=== PATIENT | female | born 1960 | race Caucasian/White ===

== ENCOUNTER 2018-03-15 22:12 | Inpatient (IN) | payer OTHER, SELFPAY ==
[2018-03-15 23:32] LABS: HEMATOCRIT 46.6 % (36.0-47.0); MEAN CORPUSCULAR HEMOGLOBIN 29.4 pg (27.0-33.0); MEAN CORPUSCULAR HGB CONC 34.3 g/dl (32.0-36.5); MEAN CORPUSCULAR VOLUME 85.7 fl (80.0-96.0); PLATELET COUNT, AUTOMATED 351 10^3/uL (150-450); RED BLOOD COUNT 5.44 10^6/uL (4.00-5.40); RED CELL DISTRIBUTION WIDTH 13.8 % (11.5-14.5); WHITE BLOOD COUNT 8.7 10^3/uL (4.0-10.0)
[2018-03-16 00:10] LABS: ALBUMIN 3.9 GM/DL (3.2-5.2); ALBUMIN/GLOBULIN RATIO 1.03 (1.00-1.93); ALKALINE PHOSPHATASE 140 U/L (45-117); ALT/SGPT 92 U/L (12-78); ANION GAP 6 MEQ/L (8-16); AST/SGOT 57 U/L (7-37); BILIRUBIN,DIRECT 0.3 MG/DL (0.0-0.2); BILIRUBIN,TOTAL 0.9 MG/DL (0.2-1.0); BLOOD UREA NITROGEN 12 MG/DL (7-18); CALCIUM LEVEL 8.7 MG/DL (8.5-10.1); CARBON DIOXIDE LEVEL 32 MEQ/L (21-32); CHLORIDE LEVEL 108 MEQ/L (98-107); CREATININE FOR GFR 0.88 MG/DL (0.55-1.30); ETHYL ALCOHOL (ETHANOL) 0.004 % (0.000-0.010); GLOMERULAR FILTRATION RATE > 60.0 (>51); GLUCOSE, FASTING 93 MG/DL (70-100); POTASSIUM SERUM 3.2 MEQ/L (3.5-5.1); SALICYLATE LEVEL 3.4 MG/DL (5.0-30.0); SODIUM LEVEL 146 MEQ/L (136-145); THYROID STIMULATING HORMONE 0.424 uIU/ML (0.358-3.740); TOTAL PROTEIN 7.7 GM/DL (6.4-8.2)
[2018-03-16 00:14] LABS: ACETAMINOPHEN LEVEL < 2.0 UG/ML (10.0-30.0)
[2018-03-16 04:50] LABS: AMPHETAMINES LEVEL URINE POSITIVE (NEGATIVE); BARBITURATES URINE POSITIVE (NEGATIVE); BENZODIAZEPINES URINE POSITIVE (NEGATIVE); CANNABINOIDS URINE NEGATIVE (NEGATIVE); COCAINE METABOLITE URINE NEGATIVE (NEGATIVE); METHADONE URINE NEGATIVE (NEGATIVE); OPIATES URINE POSITIVE (NEGATIVE); PHENCYCLIDINE URINE NEGATIVE (NEGATIVE)
[2018-03-16] MEDS: LOPERAMIDE 2 MG CAP PO (05:05)
[2018-03-16] MEDS ORDERED: MAALOX 30 ML SUSP *UDC PO (06:00)
[2018-03-16] MEDS ORDERED: MOM 30ML SUSPENSION UDC PO (06:00)
[2018-03-16] MEDS ORDERED: traZODone 50 MG TAB PO (06:00)
[2018-03-16] MEDS ORDERED: POTASSIUM CHLORIDE 10 MEQ SR TABLET As Ordered (06:09)
[2018-03-16] MEDS: POTASSIUM CHLORIDE 10 MEQ SR TABLET PO (06:12)
[2018-03-16 06:53] LABS: AST/SGOT 64 U/L (7-37)
[2018-03-16 06:53] LABS: ALT/SGPT 100 U/L (12-78); CPK CREATINE PHOSPHOKINASE 152 U/L (26-192)
[2018-03-16] MEDS: PREGABALIN 75 MG CAP(LYRICA) PO ×2 (12:26→21:36)
[2018-03-16] MEDS: LACTOBACILLUS ACIDOPHILUS CAP (BACID) PO ×2 (12:26→21:36)
[2018-03-16] MEDS: oxyCODONE 5MG TAB PO (21:38)
[2018-03-17 07:05] LABS: KETONE, URINE AUTO RFX 1+ mg/dL (NEGATIVE); LEUKOCYTE ESTERASE UR AUTO RFX NEGATIVE (NEGATIVE); MUCUS, URINE RFX SMALL (NEGATIVE); NITRITE, URINE AUTO RFX NEGATIVE (NEGATIVE); RBC, URINE AUTO RFX 1 /HPF (0-3); SPECIFIC GRAVITY UR AUTO RFX 1.028 (1.002-1.035); SQUAM EPITHELIAL CELL UR AURFX 2 /HPF (0-6); WBC, URINE AUTO RFX 5 /HPF (0-3)
[2018-03-17 08:43] LABS: HEMATOCRIT 46.3 % (36.0-47.0); HEMOGLOBIN 15.7 g/dl (12.0-15.5); MEAN CORPUSCULAR HEMOGLOBIN 29.6 pg (27.0-33.0); MEAN CORPUSCULAR HGB CONC 33.9 g/dl (32.0-36.5); MEAN CORPUSCULAR VOLUME 87.4 fl (80.0-96.0); PLATELET COUNT, AUTOMATED 347 10^3/uL (150-450); WHITE BLOOD COUNT 7.6 10^3/uL (4.0-10.0)
[2018-03-17 09:09] LABS: ALBUMIN/GLOBULIN RATIO 1.03 (1.00-1.93); ALKALINE PHOSPHATASE 144 U/L (45-117); ALT/SGPT 130 U/L (12-78); ANION GAP 8 MEQ/L (8-16); AST/SGOT 90 U/L (7-37); BILIRUBIN,TOTAL 1.1 MG/DL (0.2-1.0); BLOOD UREA NITROGEN 15 MG/DL (7-18); CALCIUM LEVEL 9.1 MG/DL (8.5-10.1); CARBON DIOXIDE LEVEL 27 MEQ/L (21-32); CHLORIDE LEVEL 109 MEQ/L (98-107); CREATININE FOR GFR 0.94 MG/DL (0.55-1.30); GLOMERULAR FILTRATION RATE > 60.0 (>51); GLUCOSE, FASTING 106 MG/DL (70-100); POTASSIUM SERUM 3.9 MEQ/L (3.5-5.1); SODIUM LEVEL 144 MEQ/L (136-145); TOTAL PROTEIN 7.9 GM/DL (6.4-8.2)
[2018-03-17] MEDS: PREGABALIN 75 MG CAP(LYRICA) PO ×2 (09:46→20:12)
[2018-03-17] MEDS: oxyCODONE 5MG TAB PO (09:47)
[2018-03-17] MEDS: LACTOBACILLUS ACIDOPHILUS CAP (BACID) PO ×2 (09:48→20:12)
[2018-03-17 11:37] LABS: HEPATITIS C VIRUS ABY INDEX 0.1 INDEX (<0.8)
[2018-03-17 11:38] LABS: HEPATITIS B CORE ANTIBODY IGM NEGATIVE (NEGATIVE)
[2018-03-17 11:39] LABS: HEPATITIS B SURFACE ANTIGEN NEGATIVE (NEGATIVE)
[2018-03-17 12:08] LABS: HEPATITIS A ANTIBODY IGM NEGATIVE (NEGATIVE)
[2018-03-17] MEDS: PALIPERIDONE 3 MG ER TAB (INVEGA) PO (13:37)
[2018-03-18] MEDS: PREGABALIN 75 MG CAP(LYRICA) PO ×2 (09:10→20:18)
[2018-03-18] MEDS: PALIPERIDONE 3 MG ER TAB (INVEGA) PO (09:11)
[2018-03-18] MEDS: LACTOBACILLUS ACIDOPHILUS CAP (BACID) PO ×2 (09:11→20:18)
[2018-03-18] MEDS: tiZANidine 4 MG TAB PO ×2 (17:52→22:00)
[2018-03-19] MEDS: oxyCODONE 5MG TAB PO ×3 (02:07→21:27)
[2018-03-19] MEDS: ACETAMINOPHEN TAB 650MG DOSE (2X325MG) PO (04:08)
[2018-03-19] MEDS: tiZANidine 4 MG TAB PO ×3 (06:22→21:26)
[2018-03-19] MEDS: PALIPERIDONE 3 MG ER TAB (INVEGA) PO (08:04)
[2018-03-19] MEDS: LACTOBACILLUS ACIDOPHILUS CAP (BACID) PO ×2 (08:06→21:26)
[2018-03-19] MEDS: PREGABALIN 75 MG CAP(LYRICA) PO ×2 (08:06→21:26)
[2018-03-19] MEDS: LORazepam 1 MG TAB PO (21:27)
[2018-03-20] MEDS: ACETAMINOPHEN TAB 650MG DOSE (2X325MG) PO (00:25)
[2018-03-20 00:26] LABS: BEDSIDE GLUCOSE 100 MG/DL (70-105)
[2018-03-20] MEDS: tiZANidine 4 MG TAB PO ×2 (06:09→13:50)
[2018-03-20] MEDS: PALIPERIDONE 3 MG ER TAB (INVEGA) PO (09:00)
[2018-03-20] MEDS: LACTOBACILLUS ACIDOPHILUS CAP (BACID) PO (09:21)
[2018-03-20] MEDS: PREGABALIN 75 MG CAP(LYRICA) PO (09:21)
[2018-03-20] MEDS: DULoxetine 30 MG CAP (CYMBALTA) PO (09:22)
[2018-03-20 10:22] LABS: ALBUMIN 3.6 GM/DL (3.2-5.2); ALBUMIN/GLOBULIN RATIO 0.97 (1.00-1.93); ALKALINE PHOSPHATASE 134 U/L (45-117); ALT/SGPT 122 U/L (12-78); ANION GAP 8 MEQ/L (8-16); AST/SGOT 46 U/L (7-37); BILIRUBIN,TOTAL 0.3 MG/DL (0.2-1.0); BLOOD UREA NITROGEN 13 MG/DL (7-18); CALCIUM LEVEL 8.5 MG/DL (8.5-10.1); CARBON DIOXIDE LEVEL 28 MEQ/L (21-32); CHLORIDE LEVEL 107 MEQ/L (98-107); GLOMERULAR FILTRATION RATE > 60.0 (>51); GLUCOSE, FASTING 108 MG/DL (70-100); POTASSIUM SERUM 3.4 MEQ/L (3.5-5.1); SODIUM LEVEL 143 MEQ/L (136-145); TOTAL PROTEIN 7.3 GM/DL (6.4-8.2)
== END 2018-03-20 14:10 | disposition home or self-care (01) | DRG 753 ==
LOC: M ED 22:12 → M ED INP 03-16 05:49 → M PSY 03-16 09:15
PROVIDERS: Psychiatry & Neurology Psychiatry
DX: F01-F99 Mental, behavioral and neurodevelopmental disorders (principal); M32.9 Systemic lupus erythematosus, unspecified; M34.9 Systemic sclerosis, unspecified; M54.2 Cervicalgia; I10 Essential (primary) hypertension; F17.210 Nicotine dependence, cigarettes, uncomplicated; E87.6 Hypokalemia; F60.89 Other specific personality disorders; R74.0 Nonspecific elevation of levels of transaminase and lactic acid dehydrogenase [LDH]; Z79.891 Long term (current) use of opiate analgesic; Z79.899 Other long term (current) drug therapy; Z88.5 Allergy status to narcotic agent; Z88.1 Allergy status to other antibiotic agents

== ENCOUNTER 2019-02-03 16:26 | Emergency (ER) | payer OTHER ==
[~2019-02-03] VITALS: Ht 157.5 cm; Wt 83.6 kg
[~2019-02-03 16:26] MED LIST: ADDE1TAB14 PO; DULO30CA9 PO; FURO20TA2 PO; HYDR-3363 PO; HYDR50TAB PO; KLON1TAB PO; KLON2TAB PO; LYRI150C PO; LYRI75CA PO; MUCI600T31 PO; NORC1TAB5 PO; OXYC20TA2 PO; OXYCO5TA PO; TEMA30CA PO; VIST50CA PO; ZANA4TAB PO
--- NOTE | 2019-02-03 19:07 | REP ---
Clinical: Trauma . Comparison: None . Findings: The ventricles, sulci, and cisterns are normal in position and appearance. Summers-white differentiation is maintained. No acute intracranial hemorrhage, mass/mass effect, pathology or trauma/injury. No evidence for acute infarction. No extra-axial fluid collection. Calvarium is intact. Paranasal sinuses and mastoid air cells are clear. Impression: Normal noncontrast head CT. No evidence for acute intracranial pathology or trauma/injury. Electronically Signed by Tylor Chavarria MD 02/03/2019 06:59 P
--- NOTE | 2019-02-03 19:09 | REP ---
Clinical: Trauma . Technique: Axial noncontrast images from the skull base to the thoracic inlet with coronal and sagittal re-formations Findings: Evidence of prior anterior fixation at C5-6 along with moderate degenerative disc osteophyte complex at C3-4, C4-5, and C6-7. Normal alignment is maintained. There is no evidence for acute fracture / compression injury or subluxation. Spinal canal is patent. Posterior elements are intact. Paravertebral soft tissues are normal. Impression: 1. Mild/moderate multilevel degenerative changes and evidence for prior anterior fixation. 2. No acute fracture / compression injury or subluxation. Electronically Signed by Tylor Chavarria MD 02/03/2019 07:01 P
[2019-02-03 20:10] VITALS: BP 138/80
== END 2019-02-03 20:11 | disposition home or self-care (01) ==
LOC: M ED 16:26
DX: S09.90XA Unspecified injury of head, initial encounter (principal); W01.198A Fall on same level from slipping, tripping and stumbling with subsequent striking against other object, initial encounter; Y92.410 Unspecified street and highway as the place of occurrence of the external cause; M54.2 Cervicalgia; H53.8 Other visual disturbances; H53.2 Diplopia; G43.909 Migraine, unspecified, not intractable, without status migrainosus; G47.33 Obstructive sleep apnea (adult) (pediatric); J45.909 Unspecified asthma, uncomplicated; K21.9 Gastro-esophageal reflux disease without esophagitis; L94.8 Other specified localized connective tissue disorders; Z98.1 Arthrodesis status; Z88.2 Allergy status to sulfonamides; Z88.5 Allergy status to narcotic agent; Z88.1 Allergy status to other antibiotic agents

== ENCOUNTER → 2019-02-11 | Outpatient (CLI) | payer OTHER ==
--- NOTE | 2019-02-11 17:59 | REP ---
Right knee five views History: Contusion There is no acute fracture or dislocation. There is moderate narrowing of the medial knee joint space. The lateral knee joint space and patellofemoral joint space are normal in appearance. Osteophytes are present on this femur and tibia. Impression: Degenerative change as described above. Electronically Signed by Doc Villar MD 02/11/2019 05:50 P
== END ==
LOC: M WUC 17:19
PROVIDERS: ATTEND Physician Assistant
DX: S80.01XA Contusion of right knee, initial encounter (principal); W18.30XA Fall on same level, unspecified, initial encounter; Y92.009 Unspecified place in unspecified non-institutional (private) residence as the place of occurrence of the external cause

== ENCOUNTER → 2020-06-01 | Outpatient (CLI) | payer OTHER ==
[~2020-06-01] MED LIST changes: +ASPI325T56 PO; +CLON1TAB8 PO; +CLON2TAB14 PO; +CYMB60CA3 PO; +HYDR50TA70 PO; +MELA10CA2 PO; +MELO15TA28 PO; +MUCI1TAB16 PO; +MYRB25TA PO; +PERC5TAB12 PO; +PREG50CA PO; +TRAZ-189 PO; +XARE10TA PO
[2020-06-01 14:20] LABS: INR 0.87
--- NOTE | 2020-06-07 09:30 | REP ---
CHEST X-RAY: 2-VIEWS HISTORY: Right knee osteoarthritis. FINDINGS: The patient is status post cervical spine discectomy and fusion plating. There are degenerative changes in the thoracic spine. The lungs are well-inflated and clear. The pleural angles are sharp. Heart size is normal. Pulmonary vasculature is not increased. The thoracic aorta is slightly tortuous. IMPRESSION: No active disease. MTDD
== END ==
LOC: M LAB 13:22
PROVIDERS: ATTEND Orthopaedic Surgery
DX: Z01.818 Encounter for other preprocedural examination (principal); M25.561 Pain in right knee; J44.9 Chronic obstructive pulmonary disease, unspecified; G62.9 Polyneuropathy, unspecified

== ENCOUNTER → 2020-06-01 | Outpatient (CLI) | payer OTHER | LOC: M LABSMTC 10:04 | PROVIDERS: ATTEND Anesthesiology | DX: Z01.812 Encounter for preprocedural laboratory examination (principal); Z20.828 Contact with and (suspected) exposure to other viral communicable diseases ==

== ENCOUNTER 2020-06-06 08:46 | Inpatient (IN) | payer OTHER ==
--- NOTE | 2020-06-05 14:33 | HPE ---
DATE OF ADMISSION: 06/06/2020 ATTENDING PHYSICIAN: Dr. Osorio Bonner CHIEF COMPLAINT: Right knee pain. HISTORY OF PRESENT ILLNESS: Lucy is a pleasant 59-year-old female with progressively worsening right knee pain and stiffness. She has failed to improve with conservative treatment. She has elected for surgery for her continued symptoms. She has pain with weightbearing activities and her activities of daily living. X-rays of her knee are notable for advanced osteoarthritis of the right knee. She has consented for a right total knee arthroplasty by Dr. Ryan Campos. ALLERGIES: DEMEROL, NEURONTIN, CLINDAMYCIN, and SULFA DRUGS, as well as patch delivery systems. CURRENT MEDICATIONS: - Lyrica 150 four times a day - tizanidine 4 mg three times a day - Klonopin 2 mg at bedtime - hydroxyzine - Cymbalta 120 mg at bedtime - hydrochlorothiazide 50 mg in the morning PAST MEDICAL HISTORY: 1. Chronic obstructive pulmonary disease (COPD). 2. Anxiety. 3. Mixed connective tissue disease. 4. High blood pressure. PAST SURGICAL HISTORY: 1. Superior labral tear from anterior to posterior (SLAP) repair of both shoulders. 2. C4-5 fusion. 3. Right knee meniscal repair. SOCIAL HISTORY: She is disabled. She smokes a half a pack a day and does not drink alcohol. FAMILY HISTORY: Noncontributory. REVIEW OF SYSTEMS: This patient denies chest pain, heart palpitations, cough, wheezing, difficulty breathing, and shortness of breath. She denies abdominal pain, nausea, vomiting, diarrhea, or constipation. She denies recent upper respiratory infection or urinary tract infection symptoms. She does complain of pain with weightbearing activities in her right knee. PHYSICAL EXAMINATION: GENERAL: She is a well-nourished, well-developed in no acute distress alert female. She ambulates with a mild limp favoring the right lower extremity. She is not using assistive devices. VITAL SIGNS: She is 5 feet 1-1/2 inches tall, weighs 200.8 pounds with a temperature of 97.1, blood pressure 132/60, pulse 68, respirations 12, NECK: Supple without adenopathy of jugular venous distention. There were no carotid bruits appreciated upon auscultation LUNGS: Clear to auscultation without rales or wheeze. HEART: Regular rate and rhythm. ABDOMEN: Bowel sounds were present. EXTREMITIES: Examination of the knee revealed intact skin. She had decreased range of motion due to pain and stiffness. The limb is neurovascular intact. LABORATORY DATA: CBC was within normal limits. Glucose 11, BUN 10, creatinine 1.0. Sodium 142, potassium 4.1. Protime 12.0, INR 0.87. Sedimentation rate was 7. Lucy has completed her chest x-ray and EKG, though the results are not available at this time. IMPRESSION: Symptomatic osteoarthritis of the right knee joint. PLAN: Consented for a right total knee arthroplasty by Dr. Ryan Campos pending chest x-ray and EKG. Edited: 06/12/20 1424 miles [place]
[~2020-06-06] VITALS: Ht 154.9 cm; Wt 93.8 kg
[~2020-06-06 08:46] MED LIST changes: +CelecoXIB 400 MG CAP PO ONE; +LR 1,000 ML IV ONE; -PERC5TAB12 PO; +PERCOCET 5MG/325MG TAB PO ONE; +PREGABALIN 75 MG CAP(LYRICA) PO ONE; -XARE10TA PO; +ceFAZolin SOD 2 GM in IV 1 EA IV ONE; +fentaNYL 100 MCG/2 ML INJECTION (J3010) IV SCH
[2020-06-06] MEDS ORDERED: propofoL 500 MG/50 ML VIAL As Ordered ONE (09:00)
[2020-06-06] MEDS ORDERED: ACETAMINOPHEN 1000MG 100ML IV BTL (OFIRMEV) (J0131 PER 10MG) As Ordered ONE (09:00)
[2020-06-06] MEDS ORDERED: LIDOCAINE 2% 100MG/5ML SDV (FOR ANES.) As Ordered ONE (09:00)
[2020-06-06] MEDS ORDERED: dexameTHASONE 4 MG/ML 1ML VIAL (J1100 PER 1MG) As Ordered ONE (09:00)
[2020-06-06] MEDS ORDERED: ONDANSETRON 4MG/2ML VIAL As Ordered ONE (09:00)
[2020-06-06] MEDS ORDERED: KETOROLAC 60MG 2ML VIAL As Ordered ONE (09:00)
[2020-06-06] MEDS ORDERED: propofoL 200 MG/20 ML VIAL As Ordered ONE (09:01)
[2020-06-06] MEDS ORDERED: fentaNYL 100 MCG/2 ML INJECTION (J3010) As Ordered ONE ×3 (09:01→13:28)
[2020-06-06] MEDS ORDERED: MIDAZOLAM INJ 2MG/2ML VIAL (J2250 PER 1MG) As Ordered ONE ×2 (09:01→11:16)
[2020-06-06] MEDS: MIDAZOLAM INJ 2MG/2ML VIAL (J2250 PER 1MG) IV SCH ×2 (11:41→11:44)
[2020-06-06] MEDS ORDERED: ROCURONIUM BROMIDE 50 MG/5 ML VIAL As Ordered ONE (12:29)
[2020-06-06] MEDS ORDERED: BUPIVACAINE/EPIN 0.25% 30 ML VIAL As Ordered ONE (12:29)
[2020-06-06] MEDS ORDERED: ceFAZolin 1GM VIAL (J0690 PER 500MG) As Ordered ONE (12:30)
[2020-06-06] MEDS ORDERED: EPINEPHrine INJ 1 MG/ML 1ML AMP As Ordered ONE (12:30)
[2020-06-06] MEDS ORDERED: BUPIVACAINE HCL 0.5% 10ML VIAL As Ordered ONE (12:30)
[2020-06-06] MEDS ORDERED: TRANEXAMIC ACID 100 MG/ML 10ML VIAL As Ordered ONE (12:30)
[2020-06-06] MEDS ORDERED: BUPIVACAINE LIPOSOME/PF 1.3% 20ML VIAL (13.3MG/ML)(EXPAREL)(C9290 PER1MG) As Ordered ONE (12:30)
[2020-06-06] MEDS ORDERED: dexameTHASONE 10MG/1ML VIAL PRES.FREE (J1100 PER 1MG) ONE (13:49)
[2020-06-06] MEDS ORDERED: EPINEPHrine INJ 1 MG/ML 1ML AMP ONE (13:49)
[2020-06-06] MEDS ORDERED: ROPIvacaine 0.5% 30ML INJECTION (J2795 PER 1MG) ONE (13:49)
[2020-06-06] MEDS ORDERED: ONDANSETRON 4MG/2ML VIAL IV PRN ×2 (15:30→15:45)
[2020-06-06] MEDS ORDERED: METOCLOPRAMIDE INJ 10MG/2ML VIAL (J2765 PER 1) IV PRN (15:30)
[2020-06-06] MEDS ORDERED: fentaNYL 100 MCG/2 ML INJECTION (J3010) IV PRN (15:30)
[2020-06-06] MEDS ORDERED: LR 1,000 ML IV SCH (15:30)
[2020-06-06] MEDS ORDERED: ACETAMINOPHEN TAB 650MG DOSE (2X325MG) PO PRN (15:45)
[2020-06-06] MEDS ORDERED: PROMETHAZINE INJ 25 MG/ML VIAL (J2550) IV PRN (15:45)
[2020-06-06] MEDS ORDERED: PERCOCET 5MG/325MG TAB PO PRN (15:45)
[2020-06-06] MEDS ORDERED: D5W/0.45% SODIUM CHLORIDE 1,000 ML IV SCH (15:45)
[2020-06-06] MEDS ORDERED: HYDROMORPHONE HCL 0.5 MG/ 0.5 ML SYRINGE (J1170 PER 1) IV PRN ×2 (15:45)
[2020-06-06] MEDS ORDERED: traMADol 50 MG TAB PO PRN (15:45)
[2020-06-06] MEDS: oxyCODONE 5MG TAB PO PRN ×2 (15:46→16:16)
[2020-06-06] MEDS ORDERED: ALBUTEROL SULFATE 2.5 MG/0.5 ML INH NEB SOLN INH PRN (16:15)
[2020-06-06 18:20] VITALS: BP 98/82
[2020-06-06] MEDS: PERCOCET 5MG/325MG TAB PO PRN (18:52)
[2020-06-06] MEDS: ALBUTEROL SULFATE 2.5 MG/0.5 ML INH NEB SOLN INH SCH (20:00)
[2020-06-06] MEDS: ceFAZolin SOD 2 GM in IV 1 EA IV SCH (20:42)
[2020-06-06 21:00] VITALS: O2SAT 96
[2020-06-06] MEDS ORDERED: ceFAZolin SOD 1 GM in D5W MINI-BAG PLUS 50 ML IV SCH (21:00)
[2020-06-06 22:00] VITALS: BP 110/59
[2020-06-06] MEDS ORDERED: RAMELTEON 8 MG TAB (ROZEREM) PO PRN (23:00)
[2020-06-06] MEDS ORDERED: hydrOXYzine 50 MG TAB PO SCH (23:00)
[2020-06-06] MEDS ORDERED: clonazePAM 1 MG TAB PO SCH (23:00)
[2020-06-06] MEDS ORDERED: traZODone 100 MG TAB PO SCH (23:00)
[2020-06-07] MEDS: PERCOCET 5MG/325MG TAB PO PRN (01:07)
[2020-06-07 02:00] VITALS: BP 95/53
[2020-06-07] MEDS: ceFAZolin SOD 2 GM in IV 1 EA IV SCH (05:03)
[2020-06-07 05:56] LABS: HEMATOCRIT 31.7 % (36.0-47.0); HEMOGLOBIN 10.5 g/dl (12.0-15.5); MEAN CORPUSCULAR HEMOGLOBIN 29.4 pg (27.0-33.0); MEAN CORPUSCULAR HGB CONC 33.1 g/dl (32.0-36.5); MEAN CORPUSCULAR VOLUME 88.8 fl (80.0-96.0); PLATELET COUNT, AUTOMATED 304 10^3/uL (150-450); RED BLOOD COUNT 3.57 10^6/uL (4.00-5.40); WHITE BLOOD COUNT 15.4 10^3/uL (4.0-10.0)
[2020-06-07 06:00] VITALS: BP 96/67
[2020-06-07 06:19] LABS: BLOOD UREA NITROGEN 11 MG/DL (7-18); CARBON DIOXIDE LEVEL 24 MEQ/L (21-32); CHLORIDE LEVEL 106 MEQ/L (98-107); GLOMERULAR FILTRATION RATE > 60.0 (>51); GLUCOSE, FASTING 172 MG/DL (70-100); POTASSIUM SERUM 4.2 MEQ/L (3.5-5.1); SODIUM LEVEL 136 MEQ/L (136-145)
[2020-06-07] MEDS ORDERED: XARE10TA PO (06:54)
[2020-06-07] MEDS ORDERED: PERC5TAB12 PO (06:54)
[2020-06-07] MEDS ORDERED: PERCOCET 5MG/325MG TAB PO PRN ×2 (07:00)
[2020-06-07] MEDS: ALBUTEROL SULFATE 2.5 MG/0.5 ML INH NEB SOLN INH SCH ×2 (08:00→11:58)
[2020-06-07] MEDS ORDERED: MOM 30ML SUSPENSION UDC PO SCH (09:00)
[2020-06-07] MEDS ORDERED: DULoxetine 30 MG CAP (CYMBALTA) PO SCH (09:00)
[2020-06-07] MEDS ORDERED: tiZANidine 4 MG TAB PO SCH (09:00)
[2020-06-07] MEDS ORDERED: MIRALAX *UNIT DOSE* 17GM PACKET PO SCH (09:00)
[2020-06-07] MEDS ORDERED: CelecoXIB 400 MG CAP PO ONE (09:00)
[2020-06-07 10:00] VITALS: BP 101/67
--- NOTE | 2020-06-07 14:09 | CR ---
DATE OF CONSULTATION: 06/06/2020 REFERRING PHYSICIAN: Osorio Bonner M.D. REASON FOR CONSULTATION: The Hospitalist generated medical evaluation for Lucy Urbina, seen in the PACU area after undergoing right total knee. PRIMARY CARE PROVIDER: Dr. Rosales office. I reviewed her preop evaluation as part of the assessment. HISTORY OF PRESENT ILLNESS: She has a medical history significant for hypertension, obstructive sleep apnea, intermittent asthma, mixed connective tissue disease, peripheral neuropathy, and migraine headaches. [facility] after a suicide attempt in 03/24. She has a history of DAMIEN, she had a CPAP machine where she lived previously in [place] but apparently forgot to bring it with her when she moved. On the preop evaluation from 05/24 indicated she was trying to have it shipped here from [place]. No history of coronary disease, DVT or pulmonary embolism. No history of cerebrovascular disease. Denies any recent chest pain, shortness of breath or palpitations. CURRENT MEDICATIONS: 1. Klonopin 1 mg b.i.d. p.r.n. with 2 mg at bedtime. 2. Aspirin 325 mg daily. 3. Cymbalta 60 mg tablet, two of them (120 mg) daily. 4. Hydrochlorothiazide 50 mg daily. 5. Hydroxyzine 50 mg q.h.s. 6. Melatonin at bedtime. 7. Myrbetriq 25 mg daily. 8. Lyrica 50 mg capsule, three capsules (150 mg) q.i.d. 9. Tizanidine 4 mg q. 8 hours p.r.n. 10. Trazodone 200 mg p.o. q.h.s. ALLERGIES: Sulfa, Clindamycin, codeine, Gabapentin, Demerol, Morphine. PHYSICAL EXAMINATION: VITAL SIGNS: Blood pressure 102/58, respiratory rate 20, O2 saturation in the mid 80s, when I evaluated her it was up to 97% postop but she is still sedated and periodically desaturates. HEENT: Unremarkable. LUNGS: Clear. HEART: Heart without murmur. ABDOMEN: Soft, nontender, no masses. EXTREMITIES: No peripheral edema. Moves arms and legs with equal strength. IMPRESSION: 1. Hypertension, hold off on her Hydrochlorothiazide for now until her blood pressure declares itself postoperatively. Would recommend restarting this at a lower dose than the 50 mg a day that she is taking currently. 2. History of depression. Continue her Duloxetine 120 mg daily. 3. History of anxiety, she takes Klonopin 1 mg b.i.d. and then 2 mg at bedtime and I would recommend holding these for now until she is safely postoperative, she keeps dropping her O2 saturations in the Recovery Room and I would avoid sedative medications at this point. 4. Asthma, nebulized bronchodilator p.r.n. 5. DAMIEN. She should use her CPAP from home, if she does not have one the hospital can supply one. Postop sleep apnea protocol advised. 6. Thromboembolic prophylaxis is per Orthopedics. MTDD
[2020-06-07] MEDS ORDERED: RIVAROXABAN 10 MG TAB (XARELTO) PO SCH (18:00)
--- NOTE | 2020-06-12 11:29 | DS ---
DATE OF ADMISSION: 06/06/2020 DATE OF DISCHARGE: 06/07/2020 ATTENDING PHYSICIAN: Osorio Bonner MD ADMITTING DIAGNOSIS: Right knee osteoarthritis. OTHER DIAGNOSES: Obstructive pulmonary disease, anxiety, mixed connective tissue disease, hypertension. DISCHARGE DIAGNOSIS: Right knee osteoarthritis status post right total knee arthroplasty. HISTORY: Patient is a 59-year-old female with progressively worsening right knee pain and stiffness. She failed to improve with conservative measures. She continued to have symptoms with weightbearing activities and activities of daily living. She consented for an elective right total knee arthroplasty with Dr. Bonner for her continued symptoms. OPERATION PERFORMED: Right total knee arthroplasty. HOSPITAL COURSE: The patient underwent a right total knee arthroplasty under general anesthesia which was uneventful. Her hospital course was without complication and she was up with physical therapy per their protocol weightbearing as tolerated on the right lower extremity. Patient was discharged on oral pain medications and will resume her preoperative medications and diet. She will use her thromboembolic deterrent stockings and take her anticoagulant postoperatively to prevent deep venous thrombosis. She will followup in our office in 12-14 days for a wound check and reevaluation. She is encouraged to contact us sooner if there is any increase in pain, redness, drainage, numbness or tingling in the extremity, fever greater than 101 degrees, or any other concerns. Please see medical record for additional details. ERAN
--- NOTE | 2020-06-12 11:53 | REP ---
RIGHT KNEE TWO VIEWS PORTABLE HISTORY: Right knee replacement. TECHNIQUE: Two views of the right knee are performed. FINDINGS: Prosthetic components are noted at the distal end of the femur and proximal end of the tibia. The osseous structures are intact and well aligned. Small amount of air and fluid are seen in the suprapatellar bursa. MTDD
--- NOTE | 2020-06-13 08:29 | RO ---
DATE OF OPERATION: 06/06/2020 PREOPERATIVE DIAGNOSIS: Right knee osteoarthritis. POSTOPERATIVE DIAGNOSIS: Right knee osteoarthritis. PROCEDURE: Right total knee replacement. SURGEON: Osorio Bonner M.D. MECHANICAL SHOP LABORER: Marvin Marx PA-C ANESTHESIA: General endotracheal ESTIMATED BLOOD LOSS: Less than 100 mL. COMPLICATIONS: No complications. TOURNIQUET: No tourniquet was inflated. COMPONENTS USED: Included DePuy Attune system, rotating platform, posterior stabilized knee system, size 6 narrow, 6 mm polyethylene, size 6 tibial tray, 35 mm patellar button. Consent reviewed in detail including a jonna discussion of the pathology involved, procedure proposed, alternatives including doing nothing, risks including but not limited to pain, failure, infection, bleeding, blood loss, incomplete relief of symptoms, need for additional surgery and other issues. The patient agrees to proceed with surgery. OPERATIVE COURSE: The patient was identified in the holding area. Site and side verified. Block was administered. The patient declined spinal anesthesia, brought to the operating room. General endotracheal anesthesia was administered. She was positioned for exposure of the right knee for arthroplasty. Once all the anesthetists were comfortable with the patients positioning, she was sterilely prepped and draped in the usual fashion. Next, I outlined the incision with a marking pen, infiltrated with 1/4% Marcaine with epinephrine and injected the remaining 6 mL of 1/4% Marcaine with epinephrine intra-articularly. Next, the incision was made with a 10 blade knife. We did not inflate the tourniquet for this case. We developed down through subcuticular tissues to the extensor mechanism. Hemostasis was accomplished with Bovie cautery. Next, a medial parapatellar standard arthrotomy was accomplished. The patella was everted. The infrapatellar fat pad was sacrificed. The medial release was accomplished. The knee was placed in a flexed position. The femoral canal was entered with canal opening drill. The distal femoral guide was installed for her because of short stature which was 6 degrees. The guide was pinned into place. I placed retractors while Mr. Marx utilized the oscillating saw to make the distal femoral cut. Next, once this was accomplished with the knee in a flexed position, we placed the AP sizing guide, predicting the size 6 femoral component. Next, pins were drilled, 4-in-1 guide installed. The anterior and posterior cuts were made by myself with an oscillating saw as well as then the chamfer cuts and then I recut the anterior cut. Next, the guide was removed. Cuts were verified. Next, the box cut was made. Size 6 guide was applied, pinned into place. Notch cut was made with the oscillating saw and then we used the rasp. This guide was also removed. Next, attention was turned to the tibial side. Extramedullary tibial alignment jig was applied, pinned into place 4 mm off the medial compartment. Next, I placed the Hohmann retractors and Mr. Marx secured the Hohmann retractors. We removed the proximal tibia using the oscillating saw. Next, additional cruciate ligament was removed using the Bovie cautery. Lamina spreaders were utilized and I removed meniscus as well as posterior osteophytes, especially posterior osteophytes in the medial compartment. Next, once this was accomplished, sizing blocks were applied, predicting the size 6 to be appropriate in flexion as well as extension. Next, once this was accomplished, the tibia was subluxed anteriorly. A trial tibial tray was pinned into place. Broach tower secured into place. The broach drill was utilized to open the tibial canal. The broach was then utilized and left in place, the tower removed. A trial tibia tray and polyethylene was installed after we installed the trial femoral component. The trial femoral component fit appropriately and the condyles were drilled. Next, the knee was placed through a range of motion with acceptable alignment including full extension. It was stable with stress. Next, the patella everted. I cleared soft tissue from around the patella. An oscillating saw was utilized to make the posterior patellar cut. The trial patellar button was secured into place, drilled and we placed the trial patella. The knee was placed through a range of motion with good tracking. Next, trial components were then removed. I placed retractors. We utilized pulse lavage irrigation. I also irrigated with TXA solution. Next, Mr. Marx stepped to the back table and prepared the bone cement while I pulse lavaged the knee. Next, once the knee surfaces were dry, I cemented the tibial component into place, excess cement cleared. I then cemented the femoral component into place, cleared excess cement. I then installed the nontrial polyethylene, placed the knee in extension, everted the patella and cemented the patellar button. While the cement was hardening, Francisco J and I applied Exparel for a perioperative analgesia and implemented pulse lavage as well as allowing TXA to stay within the knee for a minute. Next, once the cement had hardened, the patella clamp was removed. We evaluated, no excess cement around the patella and around the knee. We closed the arthrotomy using interrupted and a running Stratafix stitch, the dermis using interrupted stitch. Prineo dressing was applied on the skin. The patient was moved to the recovery room in good condition. Mr. Marx participated in the entirety of this case in the capacity of electrician's assistant. For further details, please refer to medical record. ERAN
== END 2020-06-07 12:40 | disposition home health service (06) | DRG 302 ==
LOC: M OR 08:46 → M MS5PR 18:37
PROVIDERS: ADMIT Orthopaedic Surgery; ATTEND Orthopaedic Surgery
PROC: 0SRC0J9 Replacement of Right Knee Joint with Synthetic Substitute, Cemented, Open Approach (ICD-10-PCS; principal; 2020-06-06 12:15)
DX: M17.11 Unilateral primary osteoarthritis, right knee (principal); M35.8 Other specified systemic involvement of connective tissue; I10 Essential (primary) hypertension; G62.9 Polyneuropathy, unspecified; J44.9 Chronic obstructive pulmonary disease, unspecified; F41.9 Anxiety disorder, unspecified; F32.9 Major depressive disorder, single episode, unspecified; F17.200 Nicotine dependence, unspecified, uncomplicated; G47.33 Obstructive sleep apnea (adult) (pediatric); G43.909 Migraine, unspecified, not intractable, without status migrainosus; J45.30 Mild persistent asthma, uncomplicated; Z98.1 Arthrodesis status; Z79.899 Other long term (current) drug therapy; Z88.1 Allergy status to other antibiotic agents; Z88.2 Allergy status to sulfonamides; Z88.8 Allergy status to other drugs, medicaments and biological substances; Z79.82 Long term (current) use of aspirin